=== PATIENT | female | born 2000 | race Caucasian/White ===

== ENCOUNTER 2019-12-13 02:50 | Emergency (ER) | payer MEDICAID ==
[~2019-12-13] VITALS: Ht 165.1 cm; Wt 73.0 kg
[2019-12-13] MEDS ORDERED: BACITRACIN ZINC OINT UDPKT TOP ONE ×2 (03:30→05:45)
[2019-12-13] MEDS ORDERED: LIDOCAINE HCL/PF 1% 10 MG/ML 5ML VIAL IJ ONE (03:30)
[2019-12-13] MEDS ORDERED: ACETAMINOPHEN 325MG TABLET PO ONE (03:30)
[2019-12-13] MEDS ORDERED: TETANUS, DIPHTHERIA, PERTUSSIS VAC/PF 0.5ML (>7YR OLD) IM ONE (03:30)
[2019-12-13] MEDS ORDERED: CEFTRIAXONE 1 G PREMIX 50 ML IV ONE (05:45)
[2019-12-13] MEDS ORDERED: KETOROLAC 15MG/ML VIAL IV ONE (05:45)
[2019-12-13 09:08] VITALS: BP 111/85
== END 2019-12-13 09:16 | disposition home or self-care (01) ==
LOC: ER 03:03
DX: S80.01XA Contusion of right knee, initial encounter (principal); S09.8XXA Other specified injuries of head, initial encounter; W18.39XA Other fall on same level, initial encounter; Y93.89 Activity, other specified; Y92.89 Other specified places as the place of occurrence of the external cause; Y99.8 Other external cause status
CPT/HCPCS: 12005; 70450; 73562; 81025; 90471; 90715; 96365; 96375; 99285; J0696; J1885; J3490